=== PATIENT | male | born 1950 | race African-American/Black ===

== ENCOUNTER 2025-04-26 21:52 | Emergency (ER) | payer MEDICARE, MEDICAID ==
[~2025-04-26] VITALS: Ht 180.3 cm; Wt 93.0 kg
[2025-04-26] MEDS ORDERED: LORAZEPAM 2MG/ML UD SYRINGE IM ONE (22:15)
[2025-04-26 22:32] VITALS: O2SAT 97
[2025-04-26 23:47] LABS: BASOPHILS % 0.6 % (0.0-2.0); CLARITY URINE CLEAR (CLEAR); COLOR URINE YELLOW (YELLOW); EOSINOPHILS % 5.9 % (0.0-5.0); GLUCOSE URINE NEGATIVE (NEGATIVE); HEMATOCRIT. 35.9 % (42.0-52.0); HEMOGLOBIN. 11.5 g/dL (14.0-18.0); KETONES URINE NEGATIVE (NEGATIVE); LEUKOCYTE ESTERASE URINE NEGATIVE (NEGATIVE); LYMPHOCYTES % 32.4 % (20.0-50.0); MEAN PLATELET VOLUME 7.6 fl (7.4-10.4); MONOCYTES % 14.9 % (2.0-8.0); NEUTROPHILS % 46.2 % (40.0-76.0); NITRITE URINE NEGATIVE (NEGATIVE); OCCULT BLOOD URINE NEGATIVE (NEGATIVE); PH URINE 7.5 (4.5-8.0); PLATELET 204 x1000/uL (130-400); PROTEIN URINE TRACE (NEGATIVE); RED BLOOD CELL COUNT 3.49 mill/uL (4.7-6.1); RED CELL DISTRIBUTION WIDTH 12.8 % (11.6-14.6); SPECIFIC GRAVITY URINE 1.013 (1.005-1.030); UROBILINOGEN URINE 2.0 E.U./dL (0.2-1.0)
[2025-04-26] MEDS: DIPHENHYDRAMINE 50MG/ML VIAL IM ONE (23:50)
[2025-04-26] MEDS: LORAZEPAM 2MG/ML UD SYRINGE IM NR (23:50)
[2025-04-26] MEDS: HALOPERIDOL LACTATE 5MG/ML VIAL IM ONE (23:50)
[2025-04-27 00:12] LABS: *AMPHETAMINES SCREEN URINE NEGATIVE (NEGATIVE); *BENZODIAZEPINES SCREEN URINE NEGATIVE (NEGATIVE); CREATININE 1.1 mg/dL (0.6-1.3)
[2025-04-27 00:13] LABS: ETHANOL BLOOD < 10 mg/dL (<10); UREA NITROGEN BLOOD 17 mg/dL (9-23)
[2025-04-27 00:14] LABS: *BARBITURATES SCREEN URINE NEGATIVE (NEGATIVE); *COCAINE SCREEN URINE PRESUMPTIVE POSITIVE (NEGATIVE); CANNABINOID URINE SCREEN NEGATIVE (NEGATIVE); ECSTASY MDMA SCREEN URINE NEGATIVE (NEGATIVE); METHADONE URINE SCREEN NEGATIVE (NEGATIVE); OPIATES URINE SCREEN NEGATIVE (NEGATIVE); PHENCYCLIDINE URINE SCREEN NEGATIVE (NEGATIVE)
[2025-04-27 00:33] LABS: BACTERIA URINE NONE SEEN; FINE GRANULAR CASTS URINE 0-5 /lpf; RBC URINE NONE SEEN /hpf (0-2); SQUAMOUS EPITHELIAL CELL URINE FEW /lpf (RARE/1+); WBC URINE 0-2 /hpf (0-2)
[2025-04-28 09:02] VITALS: BP 135/85; PULSE 87; RESP 16; TEMP 36.4; O2SAT 99
== END 2025-04-28 09:39 ==
LOC: ER 21:52
DX: R45.851 Suicidal ideations (principal); F29 Unspecified psychosis not due to a substance or known physiological condition; G31.9 Degenerative disease of nervous system, unspecified; I67.82 Cerebral ischemia; Z79.899 Other long term (current) drug therapy; Z20.822 Contact with and (suspected) exposure to COVID-19
CPT/HCPCS: 80305; 80048; 81003; 80307; 80329; 80320; 85025; 36415; 96372; 99285; 87426; 70450; J1200; J1630; J2060; G0480